=== PATIENT | female | born 1975 | race Hispanic/Latino ===

== ENCOUNTER 2016-11-16 13:46 | Emergency (ER) | payer BC ==
[2016-11-16 15:49] LABS: Basophils % (Auto) 0.8 % (0.0-1.8); Eosinophils % (Auto) 0.9 % (0.0-4.3); Hematocrit 39.5 % (30.3-42.9); Hemoglobin 12.9 gm/dl (10.1-14.3); Mean Corpuscular HGB Conc 33 % (30-34); Mean Corpuscular Hemoglobin 26 pg (28-32); Mean Corpuscular Volume 80 fl (79-97); Platelet Count 254 K/mm3 (140-440); Red Blood Count 4.97 M/mm3 (3.65-5.03); Red Cell Distribution Width 13.8 % (13.2-15.2); White Blood Count 7.5 K/mm3 (4.5-11.0)
[2016-11-16 16:00] LABS: Alanine Aminotransferase 19 units/L (7-56); Albumin 4.3 g/dL (3.9-5); Albumin/Globulin Ratio 1.3 %; Alkaline Phosphatase 46 units/L (35-129); Anion Gap 18 mmol/L; BUN/Creatinine Ratio 11.11; Blood Urea Nitrogen 10 mg/dL (7-17); Carbon Dioxide 26 mmol/L (22-30); Chloride 97.4 mmol/L (98-107); Glucose 84 mg/dL (65-100); Lipase 25 units/L (13-60); Potassium 4.2 mmol/L (3.6-5.0); Sodium 137 mmol/L (137-145); Total Protein 7.5 g/dL (6.3-8.2)
[2016-11-16 16:12] LABS: Bacteria,Urine 1+ /HPF (Negative); Bilirubin,Urine NEG (Negative); Blood,Urine NEG (Negative); Ketones,Urine NEG (Negative); Leukocyte Esterase,Urine TR (Negative); Nitrite,Urine NEG (Negative); Protein,Urine <15 mg/dL mg/dL (Negative); RBC,Urine < 1.0 /HPF (0.0-6.0); Urobilinogen,Urine < 2.0 mg/dL (<2.0)
[2016-11-16] MEDS ORDERED: ZOFRAN IV ONE (20:20)
[2016-11-16] MEDS ORDERED: NACL 0.9% 1000 ML 1,000 ML IV ONE (20:20)
[2016-11-16] MEDS ORDERED: MORPHINE IV ONE (20:20)
[2016-11-16] MEDS ORDERED: ZOSYN/NS 3.375GM/50ML 3.375 GM/50 ML BAG IV SCH (21:00)
[2016-11-16] MEDS ORDERED: ZOSYN/NS 4.5GM/100ML 4.5 GM/100 ML VIAL IV SCH (21:00)
--- NOTE | 2016-11-16 22:02 | Emergency Department Report ---
HPI - General Chief Complaint: Abdominal Pain Time Seen by Provider: 11/16/16 20:16 - HPI HPI: 41-year-old white female with left lower quadrant pain for 2 days. Patient describes pain as sharp, 10 out of 10, left lower abdomen without fever but has nausea. Patient also denies vomiting or dysuria. Patient went to see her PCP today who advised her to come to ED for further evaluation. ED Past Medical Hx - Past Medical History Previous Medical History?: No - Surgical History Past Surgical History?: Yes Hx Cholecystectomy: Yes Hx Appendectomy: Yes Additional Surgical History: adenoids - Social History Smoking Status: Never Smoker Substance Use Type: None - Medications Home Medications: Home Medications Medication Instructions Recorded Confirmed Last Taken Type Ciprofloxacin HCl [Ciprofloxacin 500 mg PO Q12HR #20 tab 11/16/16 Unknown Rx TAB] traMADol [Ultram] 50 mg PO Q6HR PRN #20 tablet 11/16/16 Unknown Rx ED Review of Systems ROS: Stated complaint: LOWER LEFT ABD PAIN Other details as noted in HPI Physical Exam - Physical Exam Vital Signs: Vital Signs 11/16/16 11/16/16 11/16/16 14:18 19:07 20:15 Temperature 98 F 98.0 F Pulse Rate 77 82 Respiratory 18 18 20 Rate Blood Pressure 128/76 114/82 O2 Sat by Pulse 100 100 Oximetry Physical Exam: - General Limitations: No Limitations General appearance: alert, in no apparent distress, obese - Head Head exam: Present: atraumatic, normocephalic - Eye Eye exam: Present: normal appearance - ENT ENT exam: Present: mucous membranes moist - Neck Neck exam: Present: normal inspection - Respiratory Respiratory exam: Present: normal lung sounds bilaterally. Absent: respiratory distress - Cardiovascular Cardiovascular Exam: Present: normal rhythm, tachycardia. Absent: systolic murmur, diastolic murmur, rubs, gallop - GI/Abdominal GI/Abdominal exam: Present: Left low quadrant tenderness - Extremities Exam Extremities exam: Present: normal inspection - Back Exam Back exam: Present: normal inspection - Neurological Exam Neurological exam: Present: alert, oriented X3 - Psychiatric Psychiatric exam: Present: Normal affect - Skin Skin exam: Present: warm, dry, intact, normal color. Absent: rash ED Course Vital Signs 11/16/16 11/16/16 11/16/16 14:18 19:07 20:15 Temperature 98 F 98.0 F Pulse Rate 77 82 Respiratory 18 18 20 Rate Blood Pressure 128/76 114/82 O2 Sat by Pulse 100 100 Oximetry - Reevaluation(s) Reevaluation #1: 11/16/16 23:07 I discussed at length with patient her CT findings. Advised to return to ED as symptoms worsen. ED Medical Decision Making - Lab Data Result diagrams: 11/16/16 15:19 11/16/16 15:19 Critical care attestation.: If time is entered above; I have spent that time in minutes in the direct care of this critically ill patient, excluding procedure time. ED Disposition Clinical Impression: Abdominal pain Qualifiers: Abdominal location: generalized Qualified Code(s): R10.84 - Generalized abdominal pain Disposition: DC- TO HOME OR SELFCARE Is pt being admited?: No Does the pt Need Aspirin: No Condition: Stable Instructions: Abdominal Pain (ED) Prescriptions: Ciprofloxacin HCl [Ciprofloxacin TAB] 500 mg PO Q12HR #20 tab traMADol [Ultram] 50 mg PO Q6HR PRN #20 tablet PRN Reason: Pain Referrals: PRIMARY CARE, [Primary Care Provider] - 3-5 Days
--- NOTE | 2016-11-16 22:37 | Cat Scan Report ---
FINAL REPORT EXAM: CT ABDOMEN PELVIS W CON HISTORY: abd pain, severe llq TECHNIQUE: Dynamic helical CT scan through the abdomen and pelvis during and again after intravenous injection of iodinated contrast. Images are reconstructed in the sagittal and coronal planes. Oral contrast was not given. PRIORS: None. FINDINGS: The lung bases are clear. There is been previous cholecystectomy. There is mild intrahepatic biliary dilatation. The pancreas, spleen and adrenal glands appear normal. The kidneys appear normal. The pelvic organs appear grossly normal. The stomach appears grossly within normal limits. There are no abnormally dilated loops of bowel or acute inflammatory changes. The appendix is not discretely visualized but there are no inflammatory changes in the right lower quadrant around the area of the cecum. There is a relatively large amount of stool throughout the colon. The abdominal aorta has a normal diameter. The bones and subcutaneous soft tissues are unremarkable for age. IMPRESSION: 1. Mild intrahepatic biliary dilatation is most likely due to prior cholecystectomy. Correlation with laboratory signs of biliary obstruction is recommended. 2. Suspect constipation.
[2016-11-16 23:20] VITALS: BP 110/78
== END 2016-11-17 00:11 | disposition home or self-care (01) ==
LOC: ED 13:46
DX: R10.32 Left lower quadrant pain (principal)
CPT/HCPCS: 36415; 74177; 80053; 81001; 83690; 84703; 85025; 96361; 96365; 96375; 99284; J2270; J2405; J2543; J7030; Q9967